=== PATIENT | male | born 1975 | race Caucasian/White ===

== ENCOUNTER 2022-12-25 11:06 | Emergency (ER) | payer BC ==
[2022-12-25] MEDS ORDERED: Ketorolac Tromethamine 30 MG/ML VIAL ONE (12:12)
[2022-12-25] MEDS ORDERED: Dexamethasone 10 MG/ML VIAL ONE (12:12)
[2022-12-25 12:14] LABS: SARS-CoV-2 NAA Rapid Test Not Detected (NotDetected)
[2022-12-25] MEDS ORDERED: Ipratropium/Albuterol 3 ML NEB ONE (12:26)
[2022-12-25 12:35] LABS: ALT (SGPT) 54 U/L (8-55); AST (SGOT) 54 U/L (5-34); Albumin 4.5 g/dL (3.5-5.0); Alkaline Phosphatase 66 U/L (40-110); Anion Gap 18 mmol/L (10-20); BUN (Urea Nitrogen) 8 mg/dL (8.9-20.6); Bilirubin, Total 0.8 mg/dL (0.2-1.2); Calc. Creatinine Clearance 0 mL/min (70-130); Calcium 9.1 mg/dL (7.8-10.44); Carbon Dioxide 21 mmol/L (22-29); Chloride 101 mmol/L (98-107); Estimated GFR 77; Globulin 3.1 g/dL (2.4-3.5); Glucose 107 mg/dL (70-105); Potassium 4.2 mmol/L (3.5-5.1); Protein, Total 7.6 g/dL (6.0-8.3); Sodium 136 mmol/L (136-145)
[2022-12-25 13:35] LABS: #Eosinphils 0.1 10x3/uL (0.0-0.5); #Monocytes 0.5 10x3/uL (0.0-1.1); #Neutrophils 6.4 10x3/uL (1.5-8.4); %Basophils 0.2 % (0.0-2.0); %Eosinophils 1.3 % (0.0-6.0); %Lymphocytes 14.2 % (18.0-47.0); %Monocytes 6.5 % (0.0-10.0); %Neutrophils 77.4 % (40.0-75.0); Hemoglobin 14.3 g/dL (13.5-17.5); Mean Corpuscular HGB CONC 34.3 g/dL (32.0-36.0); Mean Corpuscular Hemoglobin 31.2 pg (27.0-33.0); Mean Corpuscular Volume 90.8 fl (81.2-95.1); Platelet Count 290 10x3/uL (150-450); RBC Distribution Width 12.3 % (11.5-14.5); Red Blood Cell (RBC) Count 4.59 10x6/uL (4.32-5.72); White Blood Cell (WBC) Count 8.3 10x3/uL (3.5-10.5)
[2022-12-25] MEDS ORDERED: Iopamidol 370 76% 100 ML VIAL ONE (14:03)
== END 2022-12-25 14:05 | disposition home or self-care (01) ==
LOC: CSHERS 11:06
DX: J18.9 Pneumonia, unspecified organism (principal); Z20.822 Contact with and (suspected) exposure to COVID-19
CPT/HCPCS: 71045; 71275; 80053; 84484; 85025; 85379; 93005; 94640; 94760; 96374; 96375; J1100; J1885; J7620; Q9967